=== PATIENT | male | born 1970 | race Caucasian/White ===

== ENCOUNTER → 2016-11-02 | Day surgery (SDC) | payer OTHER ==
[~2016-11-02] VITALS: Ht 180.3 cm; Wt 97.0 kg
[~2016-11-02] MED LIST: 0.9% Sodium Chloride 1,000 ML IV PRN; CLON0.2T PO; GLPZ5T PO; LIDOCAINE PO ONE; LISI-567 PO; Sodium Chloride LOK Flush 10 mL Syringe IV PRN; [UNRECOGNIZED DRUG - OTHER] PO ONE; fentaNYL-PF 50 mCg/mL 2 mL Inj IVPUSH PRN
[2016-11-02 11:03] VITALS: BP 117/74; PULSE 89; RESP 16; O2SAT 95
--- NOTE | 2016-11-02 12:34 | PCM.ENDEGD ---
EGD Date of Service: Nov 02, 2016 Physician Narayan Cade MD Pre Procedure Diagnosis: Varices surveillance Post Procedure Dx & Findings: Esophageal erosion portal hypertensive gastropathy Procedure Esophagogastroduodenoscopy PROCEDURE IN DETAIL: The patient was placed in left lateral decubitus position. Bite block was placed. Scope lubricated, placed in posterior pharynx, passed through the cricopharyngeus and esophagus, slowly advanced the entire length of the gastric pouch, pylorus was identified, scope passed through the pylorus and descending portion of duodenum, withdrawn in the antrum, retroflexed upon itself for view of fundus and cardia. Scope was then withdrawn through the oropharynx. We introduced esophagus and around the distal esophagus we saw a couple of superficial erosion less than 1 mm in size. There was no clear esophageal varices. There were couple of less than millimeter superficial erosion however its possible there could be a very subtle varices there. Z line at 40. Stomach showed portal hypertensive gastropathy with snakeskin type pattern and mucosa from cardia fundus to the body. Antrum appeared normal as well as the pylorus. Retroflexion was done. Stomach was easily inflated balloon deflated abusing air. We advanced to the distal duodenum duodenum appeared normal with normal villous structures without any ulcers masses or erosions. Impression Esophageal erosion is probably no underlying varices however not completely clear. If there is underlying varices is very subtle. Portal hypertensive gastropathy Recommendation Repeat EGD in about 2-3 years. Avoid all NSAIDs Prilosec 20 mg once a day. Presedation Assessment Risks and Benefits Informed consent was obtained from the patient after all risks and benefits including but not limited to drug reaction, infection, pain, bleeding, perforation, as well as alternatives were discussed. Patient monitoring Continuous pulse oximetry, cardiac monitoring, blood pressure monitoring, IV access, and oxygen at 2L per nasal cannula. Periprocedural Fentanyl: Fentanyl 125mcg Incrementally Midazolam: Midazolam 6mg Incrementally Complications There were no periprocedural complications identified. Post Procedure Plan Post Procedure Recommendations 1. Restrict activities today. 2. Resume normal activities in the morning. 3. Resume medications. 4. GERD behavioral modification: - Avoid fatty, acidic, spicy, large meals - Do not lie down after meals - Do not eat or drink anything for at least 2 1/2 hours before going to bed at night - Discontinue tobacco and alcohol - Decrease or avoid caffeine - Avoid chocolate and mints - Decrease weight - Avoid aspirin and non steroidal anti-inflammatory agents (NSAID) such as Aleve, Advil, Mobic, Naproxen, Ibuprofen, etc 5. Add proton pump inhibitor. Take 30 minutes before 1st meal of the day. 6. Patient informed of normal post procedure side effects as bloating, drowsiness, blood streaking in the stool 7. If gastric biopsy reveal H.pylori, continue with appropriate treatment 8. If small bowel biopsy reveals celiac, continue with appropriate treatment 9. Please don't hesitate to call me with any questions Narayan Cade MD Nov 02, 2016 12:34
[2016-11-02 12:40] VITALS: BP 133/79; PULSE 100; RESP 16; O2SAT 93
[2016-11-02 12:50] VITALS: BP_SYST 107; BP_SYST 123; BP_DIAS 76; BP_DIAS 77; PULSE 93; RESP 16; O2SAT 93
[2016-11-02 13:00] VITALS: BP 107/76; PULSE 90; RESP 16; O2SAT 95
== END | disposition home or self-care (01) ==
LOC: END 12:34
PROVIDERS: ATTEND Internal Medicine
DX: K22.10 Ulcer of esophagus without bleeding (principal); K76.6 Portal hypertension; K31.89 Other diseases of stomach and duodenum; K70.30 Alcoholic cirrhosis of liver without ascites; F10.21 Alcohol dependence, in remission
CPT/HCPCS: 43235; G0500